=== PATIENT | female | born 1955 | race Caucasian/White ===

== ENCOUNTER → 2016-06-17 | Outpatient (CLI) | payer OTHER ==
--- NOTE | 2016-06-17 17:06 | MA ---
Screening Digital Mammogram With iCAD Analysis Clinical Indications: Routine screening. Technique: Standard cephalocaudal projections are obtained. Digital breast tomosynthesis was performe d in the MLO projection with reconstruction at 1.0 mm slice thickness and composite MLO views reconst ructed. This examination is processed by the iCAD computer aided detection system. Comparison: February 2015, August 2013, July 2012. Breast density: Type C: Heterogeneously dense. Findings: CAD was reviewed. There is possible developing architectural change noted in the upper [address] on the oblique tomographic sequence. No suspicious microcalcifications are identified. The right b reast is stable in appearance. Impression: Possible developing left breast architectural change requires further evaluation, BI-RADS 0. Recommendation: Spot compression assessment of the left breast with ultrasound suggested if the abnor mality persists on diagnostic evaluation. [facility] will send a result letter to the patient. Negative mammography should not preclude additional workup of a clinically suspicious finding. The patient's information is entered into a reminder system with a target due date for her next mammo gram.
== END ==
LOC: FIMAGING 14:23
DX: Z12.31 Encounter for screening mammogram for malignant neoplasm of breast (principal)

== ENCOUNTER → 2016-06-25 | Outpatient (CLI) | payer OTHER | LOC: FIMAGING 14:18 | PROVIDERS: ATTEND Physician Assistant | DX: Z03.89 Encounter for observation for other suspected diseases and conditions ruled out (principal) | CPT/HCPCS: G0206 ==

== ENCOUNTER → 2017-05-02 | Outpatient (CLI) | payer OTHER | LOC: BMCIMAGING 09:34 | PROVIDERS: ATTEND Physician Assistant | DX: Z13.820 Encounter for screening for osteoporosis (principal); M85.80 Other specified disorders of bone density and structure, unspecified site ==

== ENCOUNTER → 2017-09-25 | Outpatient (CLI) | payer OTHER | LOC: FIMAGING 14:11 | PROVIDERS: ATTEND Physician Assistant | DX: Z12.31 Encounter for screening mammogram for malignant neoplasm of breast (principal) ==

== ENCOUNTER → 2017-10-03 | Outpatient (CLI) | payer OTHER | LOC: FIMAGING 17:06 | PROVIDERS: ATTEND Physician Assistant | DX: M19.041 Primary osteoarthritis, right hand (principal) ==

== ENCOUNTER 2017-11-24 16:18 | Emergency (ER) | payer OTHER ==
[2017-11-24 16:24] VITALS: BP 112/75
--- NOTE | 2017-11-24 17:13 | EDPHY ---
General - History Smoking Status: Never smoked Time Seen by Provider: 11/24/17 17:01 Narrative: CHIEF COMPLAINT: Dog scratch HISTORY OF PRESENT ILLNESS: Patient presents with complaints to dog scratch to the right forearm. This happened earlier today. This is her friend's dog. She says the dog became very excited and jumped up to Greet her and accidentally scratched her on the right anterior forearm. The dog is reportedly up-to-date on his vaccinations. It was minimally painful at the time. Moderately painful now. No numbness or tingling. No difficulty bending the fingers or wrist on the right arm. She did irrigate this at home. Her tetanus is well up-to-date. She is only here for wound cleaning and for prophylaxis with antibiotics. She has no difficulty with range of motion. No radiating pain. No other associated complaints or modifying factors. TIME OF INJURY: 1:30 p.m. Today TETANUS STATUS: Up-to-date MEDICAL/SURGICAL/SOCIAL HISTORY: Reviewed as documented. No anticoagulant use. Right-hand dominant REVIEW OF SYSTEMS: Ten systems reviewed and are negative unless otherwise noted in the HPI EXAMINATION General Appearance: Alert, no distress Head: normocephalic, atraumatic Cardiovascular: Pulses normal throughout. Brisk cap refill Neurological: A&O, sensory symmetric, strength symmetric Skin: Warm and dry. There are 4 points of excoriation puncture to the right anterior forearm that are a superficial and linear consistent with her injury. There is no pulsatile bleeding. No foreign body. Extremities: Mild tenderness of the right anterior forearm of the lacerations. Range of motion right upper extremity is fully intact and symmetric to the left. DIFFERENTIAL DIAGNOSES: Including but not limited to doc stress, dog bite MDM: 5:05 p.m. Dog scratch to the right anterior forearm with no dog bite. The arm is well- appearing, and she presents within 4 hr of the reported injury. Tetanus up-to- date. There is no bony trauma or injury. No indication for x-ray. I do not feel that primary closure is appropriate, thus she will be irrigated and we will place her on empiric Augmentin. We discussed 48-72 hour wound check for the consideration of delayed closure if the wound is clean appearing at that time. Discharged in stable condition. SUPERVISION: This patient was independently evaluated without direct involvement of or examination by the attending physician. ED Precautions: Worsening pain. Erythema, edema, cyanosis, pallor, paresthesia or anesthesia. (Patricio Sandhu) The patient was evaluated and managed by the physician case management assistant. I have reviewed this chart and I agree with the findings and plan of care as documented , as indicated by my signature. I am the secondary supervising physician. ( Verna Goodwin) - Objective Vital Signs: Initial Vital Signs Temperature (C) 36.4 C 11/24/17 16:21 Heart Rate 76 11/24/17 16:21 Respiratory Rate 16 11/24/17 16:21 Blood Pressure 112/75 11/24/17 16:21 O2 Sat (%) 93 11/24/17 16:21 O2 Delivery Mode Room Air Allergies/Adverse Reactions: No Known Allergies Allergy (Unverified 11/24/17 16:21) Home Medications: Medication Instructions Recorded Amoxicillin/Clavulanate Pot 875 mg PO BID #14 tab 11/24/17 [Augmentin 875 MG TAB (*)] Levothyroxine 11/24/17 Sumatriptan 11/24/17 buPROPion 11/24/17 Departure - Departure Disposition: Home, Routine, Self-Care Clinical Impression: Dog scratch Condition: Good Instructions: Animal Bite (ED) Additional Instructions: 1. Daily wound care as discussed 2. Augmentin as prescribed for 7 days 3. Return here in 72 hr for re-evaluation and possible delayed closure. 4. Return here for any signs of infection including warmth, purulence, pain with movement of the right arm, fever Referrals: Keyanna Jimenez PA [Primary Care Provider] - As per Instructions Prescriptions: Amoxicillin/Clavulanate Pot [Augmentin 875 MG TAB (*)] 875 mg PO BID #14 tab
== END 2017-11-24 17:20 | disposition home or self-care (01) ==
DX: S50.811A Abrasion of right forearm, initial encounter (principal); W54.8XXA Other contact with dog, initial encounter; Y99.8 Other external cause status; Y93.89 Activity, other specified

== ENCOUNTER → 2018-08-26 | Outpatient (CLI) | payer OTHER | LOC: FIMAGING 11:43 | PROVIDERS: ATTEND Physician Assistant | DX: M50.321 Other cervical disc degeneration at C4-C5 level (principal); M50.322 Other cervical disc degeneration at C5-C6 level ==

== ENCOUNTER → 2018-09-11 | Outpatient (CLI) | payer OTHER | LOC: FIMAGING 16:46 | PROVIDERS: ATTEND Physician Assistant | DX: R59.0 Localized enlarged lymph nodes (principal); E06.3 Autoimmune thyroiditis ==

== ENCOUNTER → 2018-11-02 | Outpatient (CLI) | payer OTHER | LOC: FIMAGING 12:28 ==